=== PATIENT | female | born 1955 | race Caucasian/White ===

== ENCOUNTER → 2019-08-08 | Outpatient (CLI) | payer BC ==
--- NOTE | 2019-08-08 12:22 | XR ---
EXAMINATION TYPE: XR thoracic spine complete DATE OF EXAM: 08/08/2019 CLINICAL HISTORY: Back pain with no known injury TECHNIQUE: Frontal, lateral, and swimmer's view of thoracic spine are obtained. COMPARISON: None. FINDINGS: There is a subtle and mild levoscoliosis of the thoracic spine. Minimal multilevel degenera tive disc disease with very few small anterior osteophytes. Thoracic spine show satisfactory alignmen t without evidence of acute fracture or dislocation. Vertebral body heights and disc space heights a re preserved. Visualized ribs are unremarkable. IMPRESSION: No acute fracture or dislocation is seen in the thoracic spine. Very mild levoscoliosis of the thoracic spine and very mild multilevel degenerative disc disease.
== END | disposition home or self-care (01) ==
LOC: RADXRMAIN 11:11
PROVIDERS: ATTEND Family Medicine
DX: M51.34 Other intervertebral disc degeneration, thoracic region (principal); M41.84 Other forms of scoliosis, thoracic region
CPT/HCPCS: 72072

== ENCOUNTER 2019-10-01 20:53 | Emergency (ER) | payer BC ==
[2019-10-01 21:12] LABS: Glucose,Whole Blood 137 mg/dL (75-99)
[2019-10-01 21:42] VITALS: RESP 16
[2019-10-01] MEDS ORDERED: valACYclovir 500 MG TAB PO STA (21:45)
[2019-10-01] MEDS ORDERED: predniSONE 10 MG TAB PO STA (21:45)
--- NOTE | 2019-10-01 21:49 | ED ---
Neuro HPI - General Chief Complaint: Neuro Symptoms/Deficit Stated Complaint: Facial numbness Time Seen by Provider: 10/01/19 21:37 Source: patient Mode of arrival: ambulatory Limitations: no limitations - History of Present Illness Is the patient presenting with stroke symptoms?: No Onset/Timin -: hour(s) Initial Comments: Lucy is a 64-year-old female who presents to the emergency department today for evaluation of left-sided facial droop. Patient reports that around 10 AM today she noticed some left-sided facial numbness and throughout the day she has noticed progressively worsening left-sided facial droop. Patient reports she when she looked in the mirror today she realized her mouth was drooping in her eye when it closed at which time she became concerned she may have had a stroke so she came to the ER for further evaluation. Patient denies any headache, vision change. She was recently treated for shingles with steroids and antivirals. Shingles were on her right breast. - Related Data Home Medications: Previous Rx's Medication Instructions Recorded predniSONE 5 mg PO BID #20 tab 10/01/19 predniSONE [Deltasone] 20 mg PO BID #20 tab 10/01/19 valACYclovir HCL [Valtrex] 1,000 mg PO Q8HR #30 tab 10/01/19 Allergies/Adverse Reactions: Allergies Allergy/AdvReac Type Severity Reaction Status Date / Time No Known Allergies Allergy Verified 10/01/19 20:58 Review of Systems ROS Statement: Those systems with pertinent positive or pertinent negative responses have been documented in the HPI. ROS Other: All systems not noted in ROS Statement are negative. General Exam - General Exam Comments Initial Comments: Physical Exam GENERAL: Patient is well-developed and well-nourished. Patient is nontoxic and well- hydrated and is in no distress. HENT: Normocephalic, Atraumatic. EYES: PERRL, EOMI PULMONARY: Unlabored respirations. No audible rales rhonchi or wheezing was noted. CARDIOVASCULAR: There is a regular rate and rhythm without any murmurs gallops or rubs. ABDOMEN: Soft and nontender with normal bowel sounds. SKIN: Skin is clear with no lesions or rashes and otherwise unremarkable. All healing lesion on the right breast consistent with recent shingles infection : Deferred NEUROLOGIC: Patient is alert and oriented x3. Moving all extremities spontaneously Patient has left-sided facial droop involving the forehead. Patient has inability to fully close the left eye. MUSCULOSKELETAL: Normal extremities with adequate strength and full range of motion. No lower extremity swelling or edema. No calf tenderness. PSYCHIATRIC: Normal psychiatric evaluation. Limitations: no limitations Stroke [facility] - Lab Data Lab Results 10/01/19 Range/Units 21:08 POC Glucose (mg/dL) 137 H (75-99) mg/dL POC Glu Strategic Debriefing Officer ID Evelyn Monteiro - NIH Stroke Scale 1a. Level of Consciousness: (0) alert 1b. LOC Questions: (0) answers correctly 1c. LOC Commands: (0) performs tasks correctly 2. Best Gaze: (0) normal 3. Visual: (0) no visual loss 4. Facial Palsy: (2) partial paralysis 5a. Motor Arm Left: (0) no drift 5b. Motor Arm Right: (0) no drift 6a. Motor Leg Left: (0) no drift 6b. Motor Leg Right: (0) no drift 7. Limb Ataxia: (0) absent 8. Sensory: (0) normal 9. Best Language: (0) no aphasia 10. Dysarthria: (0) normal 11. Extinction/Inattention: (0) no abnormality NIH Score total: 2 - Thrombolytic Inclusion/Exclusion Thrombolytic Exclusion Criteria: Symptom Onset > 4.5 Hours - Medical Decision Making Patient was seen and evaluated history is obtained from the patient and at bedside Patient with facial numbness and progressively worsening droop throughout the day. Facial droop includes the forehead, patient is unable to fully close left eye. As ago exam is consistent with a Davenport's palsy or a peripheral neuropathy not a central process therefore code stroke was not activated. Patient reports her sister suffered from Davenport's palsy so she is familiar with the diagnosis and treatment being supportive care and eye patching. I advised patient that she is not diabetic we will also get steroids and an additional course of Valtrex despite her recently being on antivirals due to shingles. Patient's TMs were normal bilaterally. - EKG Data -: EKG Interpreted by Me EKG was obtained as part of the triage with patient with neuro deficit, EKG obtained at 2106, rate is 82 rhythm is sinus, axis normal intervals [place] 158, curettement 6 QTC 439 elevations or depressions or evidence of acute ischemia or infarction. 10/02/19 04:54 Past Medical History Past Medical History: Hyperlipidemia, Thyroid Disorder History of Any Multi-Drug Resistant Organisms: None Reported Past Surgical History: Adenoidectomy, Hysterectomy, Tonsillectomy Additional Past Surgical History / Comment(s): eye surgery Past Psychological History: No Psychological Hx Reported Smoking Status: Current every day smoker Past Alcohol Use History: None Reported Past Drug Use History: None Reported Course Vital Signs 10/01/19 10/01/19 10/01/19 20:55 21:10 21:25 Temperature 98.0 F Pulse Rate 89 85 67 Respiratory 16 17 16 Rate Blood Pressure 154/80 124/68 140/84 O2 Sat by Pulse 98 96 97 Oximetry 10/01/19 10/01/19 21:30 22:15 Temperature 98.3 F 98.4 F Pulse Rate 70 75 Respiratory 16 16 Rate Blood Pressure 130/73 133/75 O2 Sat by Pulse 96 96 Oximetry Disposition Clinical Impression: Facial paralysis/Hamilton palsy Disposition: HOME SELF-CARE Condition: Stable Instructions (If sedation given, give patient instructions): Davenport Palsy (ED) Prescriptions: predniSONE [Deltasone] 20 mg PO BID #20 tab predniSONE 5 mg PO BID #20 tab valACYclovir HCL [Valtrex] 1,000 mg PO Q8HR #30 tab Is patient prescribed a controlled substance at d/c from ED?: No Referrals: Juan Almanza MD [Primary Care Provider] - 1-2 days
[2019-10-01 22:16] VITALS: BP 133/75; PULSE 75; TEMP 98.4
== END 2019-10-01 22:35 | disposition home or self-care (01) ==
LOC: EC 20:53
DX: R20.0 Anesthesia of skin (principal); R29.810 Facial weakness; B02.9 Zoster without complications; F17.200 Nicotine dependence, unspecified, uncomplicated; Z90.89 Acquired absence of other organs
CPT/HCPCS: 36415; 93005; 99284; J7512

== ENCOUNTER → 2019-10-06 | Outpatient (CLI) | payer BC ==
--- NOTE | 2019-10-06 08:04 | CT ---
EXAMINATION TYPE: CT brain wo con DATE OF EXAM: 10/06/2019 COMPARISON: None HISTORY: [place] Palsy CT DLP: [address] of the head is obtained. The ventricles, basal cisterns and sulci overlying the conve xities are consistent with the patient's age. The calvarium is intact. Changes of chronic sinusitis noted. No midline shift. IMPRESSION: 1. No evidence of acute hemorrhage or mass effect. If symptoms persist or there is clinical concern for acute ischemia correlate with MRI.
--- NOTE | 2019-10-06 10:14 | US ---
EXAMINATION TYPE: US carotid duplex BILAT DATE OF EXAM: 10/06/2019 COMPARISON: NONE CLINICAL HISTORY: G45.9 TIA. No HTN. Smoker. Patient states having Davenport Palsy. EXAM MEASUREMENTS: RIGHT: Peak Systolic Velocity (PSV) cm/sec ----- Right CCA: 78.9 ----- Right ICA: 78.9 ----- Right ECA: 93.2 ICA/CCA ratio: 1.0 RIGHT: End Diastole cm/sec ----- Right CCA: 26.0 ----- Right ICA: 31.5 ----- Right ECA: 15.0 LEFT: Peak Systolic Velocity (PSV) cm/sec ----- Left CCA: 59.0 ----- Left ICA: 91.9 ----- Left ECA: 208.8 ICA/CCA ratio: 1.6 LEFT: End Diastole cm/sec ----- Left CCA: 18.0 ----- Left ICA: 33.6 ----- Left ECA: 19.2 VERTEBRALS (direction of flow): Right Vertebral: Antegrade Left Vertebral: Antegrade Rhythm: Normal No significant stenosis. Elevated left ECA. Small amount of plaque seen in bilateral bulbs. No wal l thickening. IMPRESSION: 1. Small amount of atherosclerotic plaque with no significant hemodynamic stenosis bilaterally. Criteria for Assigning % of Stenosis / Diameter reduction (Estimation based on the indirect measurements of the internal carotid artery velocities (ICA PSV). 1. Normal (no stenosis)=ICA PSV < 125 cm/s: ratio < 2.0: ICA EDV<40 cm/s. 2. Less than 50% stenosis=ICA PSV < 125 cm/s: ratio < 2.0: ICA EDV<40 cm/s. 3. 50 to 69% stenosis=ICA PSV of 125 to 230 cm/s: ration 2.0 ? 4.0: ICA EDV 40-100 cm/s. 4. Greater than 70% stenosis to near occlusion= ICA PSV > 230 cm/s: ratio > 4.0: ICA EDV > 100 cm/s. 5. Near occlusion= ICA PSV velocities may be low or undetectable: variable ratio and ICA EDV. 6. Total occlusion=unable to detect flow.
--- NOTE | 2019-10-06 10:36 | ECHOF ---
Referral Reason:G51.0 bells palsy MEASUREMENTS -------- HEIGHT: 167.6 cm WEIGHT: 104.3 kg BP: RVIDd: 3.4 cm (< 3.3) IVSd: 1.4 cm (0.6 - 1.1) LVIDd: 3.8 cm (3.9 - 5.3) LVPWd: 1.4 cm (0.6 - 1.1) IVSs: 2.1 cm LVIDs: 2.6 cm LVPWs: 1.7 cm LAESV Index (A-L): 15.41 ml/m Ao Diam: 3.5 cm (2.0 - 3.7) AV Cusp: 2.0 cm (1.5 - 2.6) LA Diam: 3.6 cm (2.7 - 3.8) MV E Jay: 0.68 m/s MV DecT: 219 ms MV A Jay: 1.14 m/s MV E/A Ratio: 0.60 AR PHT: 554 ms RAP: 5.00 mmHg RVSP: 18.42 mmHg FINDINGS -------- Sinus rhythm. This was a technically adequate study. The left ventricular size is normal. There is moderate concentric left ventricular hypertrophy. O verall left ventricular systolic function is normal with, an EF between 60 - 65 %. The diastolic fi lling pattern is normal for the age of the patient 8.68. The right ventricle is mildly enlarged. Normal LA size by volume 22+/-6 ml/m2. The right atrial size is normal. Interatrial and interventricular septum intact. The aortic valve was not well visualized. There is jgwy-hk-xsebzlko aortic regurgitation. There i s no evidence of aortic stenosis. No mitral regurgitation. Trace tricuspid regurgitation present. There is no evidence of pulmonary hypertension. The right ventricular systolic pressure, as measured by Doppler, is 18.42mmHg. There is no pulmonic regurgitation present. The aortic root size is normal. Normal inferior vena cava with normal inspiratory collapse consistent with estimated right atrial pre ssure of 5 mmHg. There is no pericardial effusion. CONCLUSIONS -------- 1. Sinus rhythm. 2. This was a technically adequate study. 3. The left ventricular size is normal. 4. There is moderate concentric left ventricular hypertrophy. 5. Overall left ventricular systolic function is normal with, an EF between 60 - 65 %. 6. The diastolic filling pattern is normal for the age of the patient 8.68 7. The right ventricle is mildly enlarged. 8. Normal LA size by volume 22+/-6 ml/m2. 9. The right atrial size is normal. 10. Interatrial and interventricular septum intact. 11. The aortic valve was not well visualized. 12. There is lhyt-ud-urbrturn aortic regurgitation. 13. There is no evidence of aortic stenosis. 14. No mitral regurgitation. 15. Trace tricuspid regurgitation present. 16. There is no evidence of pulmonary hypertension. 17. The right ventricular systolic pressure, as measured by Doppler, is 18.42mmHg. 18. There is no pulmonic regurgitation present. 19. The aortic root size is normal. 20. Normal inferior vena cava with normal inspiratory collapse consistent with estimated right atrial pressure of 5 mmHg. 21. There is no pericardial effusion. ELECTRIC MELT OPERATOR: Jodie Hinojosa RDCS
== END | disposition home or self-care (01) ==
LOC: RADCTMAIN 06:59
PROVIDERS: ATTEND Family Medicine
DX: G51.0 Bell's palsy (principal); G45.9 Transient cerebral ischemic attack, unspecified; I35.1 Nonrheumatic aortic (valve) insufficiency; I51.7 Cardiomegaly
CPT/HCPCS: 70450; 93306; 93880

== ENCOUNTER 2020-06-27 08:52 | Day surgery (SDC) | payer BC, OTHER ==
[2020-06-25 14:04] VITALS: BMI 37.1
[~2020-06-27 08:52] MED LIST: LACTATED RINGERS 1,000 ML IV SCH
[2020-06-27 09:23] VITALS: TEMP 97.2
[2020-06-27] MEDS ORDERED: LIDOCAINE 1% (10MG/ML) FOR IV START INTRADERMA ONE (09:26)
[2020-06-27] MEDS ORDERED: PROPOFOL 10 MG/ML 20 ML VIAL IV ONE (09:47)
--- NOTE | 2020-06-27 10:00 | P.GSHP ---
History of Present Illness H&P Date: 06/27/20 Chief Complaint: Screening colonoscopy This a 64-year-old female been safe for screening colonoscopy. Patient denies a significant GI complaints. Past Medical History Past Medical History: Hyperlipidemia, Sleep Apnea/CPAP/BIPAP, Thyroid Disorder Additional Past Medical History / Comment(s): has cpap History of Any Multi-Drug Resistant Organisms: None Reported Past Surgical History: Adenoidectomy, Hysterectomy, Tonsillectomy Additional Past Surgical History / Comment(s): eye surgery Past Anesthesia/Blood Transfusion Reactions: No Reported Reaction Smoking Status: Current every day smoker Medications and Allergies Home Medications Medication Instructions Recorded Confirmed Type Aspirin [Children's Aspirin] 81 mg PO DAILY 06/25/20 06/27/20 History Calcium Carbonate/Vitamin D3 1 each PO DAILY 06/25/20 06/27/20 History [Calcium 500-Vit D3 200 Tablet] Levothyroxine Sodium [Synthroid] 100 mcg PO DAILY 06/25/20 06/27/20 History Multivit-Min/FA/Lycopen/Lutein 1 each PO DAILY 06/25/20 06/27/20 History [Centrum Silver Tablet] Simvastatin [Zocor] 80 mg PO DAILY 06/25/20 06/27/20 History Vit C/E/Zn/Coppr/Lutein/Zeaxan 1 each PO DAILY 06/25/20 06/27/20 History [Preservision Areds 2 Softgel] Vitamin E 1 cap PO DAILY 06/25/20 06/27/20 History Allergies Allergy/AdvReac Type Severity Reaction Status Date / Time No Known Allergies Allergy Verified 06/27/20 09:18 Surgical - Exam Vital Signs Temp Pulse Resp BP Pulse Ox 97.2 F L 77 18 146/72 94 L 06/27/20 09:21 06/27/20 09:21 06/27/20 09:21 06/27/20 09:21 06/27/20 09:21 - General well developed, well nourished, no distress - Eyes PERRL - ENT normal pinna - Neck no masses - Respiratory normal expansion - Cardiovascular Rhythm: regular - Abdomen Abdomen: soft, non tender Assessment and Plan Assessment: We'll perform screening colonoscopy.
--- NOTE | 2020-06-27 10:14 | P.OP ---
Date of Procedure: 06/27/20 Preoperative Diagnosis: Screening colonoscopy Postoperative Diagnosis: Normal colonoscopy Procedure(s) Performed: Colonoscopy Anesthesia: MAC Surgeon: Vasu Cunha Pathology: none sent Condition: stable Disposition: PACU Description of Procedure: Patient's placed on the endoscopy table in the lateral position. She received IV sedation. Digital rectal exam was performed which revealed external hemorrhoids. The flexible colonoscope was then placed patient anus passed throughout the entire colon. The ileocecal valve sutures. The cecum, ascending and transverse colon appeared normal. The descending and sigmoid colon appeared normal. Scope summer back the rectum and this appeared normal. Scope withdrawn for patient.
[2020-06-27 10:27] VITALS: RESP 18
[2020-06-27 10:44] VITALS: BP 144/81; PULSE 61
== END 2020-06-27 10:51 | disposition home or self-care (01) ==
LOC: ORWHC2ENDO 08:52
PROVIDERS: ATTEND Surgery
DX: Z12.11 Encounter for screening for malignant neoplasm of colon (principal); E78.5 Hyperlipidemia, unspecified; G47.33 Obstructive sleep apnea (adult) (pediatric); Z99.89 Dependence on other enabling machines and devices; E07.9 Disorder of thyroid, unspecified; Z90.710 Acquired absence of both cervix and uterus; Z98.890 Other specified postprocedural states; F17.200 Nicotine dependence, unspecified, uncomplicated; Z79.82 Long term (current) use of aspirin; Z79.890 Hormone replacement therapy; Z79.899 Other long term (current) drug therapy
CPT/HCPCS: J2704; G0121; 45378

== ENCOUNTER → 2023-02-25 | Outpatient (CLI) | payer OTHER ==
--- NOTE | 2023-02-25 07:54 | CT ---
EXAMINATION TYPE: CT sinus wo con CT DLP: 596.5 mGycm, Automated exposure control for dose reduction was used. DATE OF EXAM: 02/25/2023 7:17 AM COMPARISON: CT brain 10/06/2019. CLINICAL INDICATION:Female, 67 years old with history of J31.0; PHH, Chronic sinuitis CONTRAST: None. TECHNIQUE: Multiple thin axial images were obtained through the paranasal sinuses without the use of IV contrast. Additional coronal and sagittal reformatted images were submitted for evaluation. FINDINGS: Frontal sinuses: Normally developed and aerated. Frontal Recess: Clear Maxillary Sinuses: Normally developed. The left maxillary sinus is clear. Minimal mucosal thickening of the right maxillary sinus. Maxillary Infundibula([facility]): Clear, . Ethmoid sinuses: Normally developed. Moderate mucosal thickening of the bilateral ethmoid sinuses. Et hmoidal notch: Protected and abutting the lateral lamina. Sphenoid sinuses: Normally developed. Moderate mucosal thickening of the left sphenoid sinus. There i s sellar sphenoid sinus pneumatization without evidence of dehiscence. No dehiscence of carotid david l. No evidence of optic nerve dehiscence within the sphenoid sinus. Sphenoethmoidal recesses: Clear. Nasal septum: Mildly deviated to the left. Nasal Turbinates: Within normal limits. Mastoid air cells & middle ears: Opacification of both mastoid air cells. There is some soft tissue i n the region of the Prussak space bilaterally. Modified Soft tissues & Brain: Partially seen without gross abnormality. Globes are intact. Other: Cribriform plate demonstrates symmetric Keros classification type 1 cribriform plate. No evidence of bony dehiscence of skull base. Lamina papyracea is intact without evidence of remote orbital fracture or orbital prolapse into the e thmoid sinus. IMPRESSION: 1. Pogz-zd-dqaxyzrc mucosal sinus disease involving the ethmoid sinuses and left sphenoid sinus. 2. The ostiomeatal units, frontonasal and sphenoethmoidal recesses are clear. 3. Bilateral mastoid effusions with some soft tissue in the region of the bilateral Prussak space of the middle ear. Clinical correlation for mastoiditis is recommended. Consider further evaluation with CT IAC.
== END | disposition home or self-care (01) ==
LOC: RADCTMAIN 06:57
PROVIDERS: ATTEND Otolaryngology
DX: H74.8X3 Other specified disorders of middle ear and mastoid, bilateral (principal); J34.81 Nasal mucositis (ulcerative); J31.0 Chronic rhinitis
CPT/HCPCS: 70486

== ENCOUNTER → 2023-06-02 | Outpatient (CLI) | payer MEDICARE ==
--- NOTE | 2023-06-02 09:00 | CT ---
EXAMINATION TYPE: CT iac wo con CT DLP: 142.70 mGycm, Automated exposure control for dose reduction was used. DATE OF EXAM: 06/02/2023 6:51 AM INDICATION: Patient age:Female; 67 years old; Reason for study: H71.90 UNSPECIFIED CHOLESTEATOMA, UNSPECIFIED EAR; [facility]. COMPARISON: 02/25/2023 TECHNIQUE: Multiple thin axial images were obtained through the temporal bones and internal auditory canals. Additional coronal reformatted images were obtained. No IV contrast was utilized. STENVER a nd POSCHL views were created on a separate work station. CT Contrast: Contrast used: none. FINDINGS: Right Temporal Bone: External Ear: The external auditory canal is unremarkable, The tympanic membrane is present and unrem arkable. Middle Ear: The ossicles demonstrate a normal appearance. Prussak's space is clear and the scutum i s intact. There is no evidence of osseous erosion and the tegmen tympani is intact. Inner Ear: Cochlea, vestibule and semi circular canals are unremarkable. No evidence of carotid david l dehiscence. Two and a half turns of the cochlea are identified. The vestibular aqueduct is not enl arged. Mastoid Air Cells: The mastoid air cells are clear. The tegmen mastoideum is intact. The aditus ad an trum is clear. Internal Auditory Canal: The internal auditory canal is unremarkable. Left Temporal Bone: External Ear: The external auditory canal is unremarkable, The tympanic membrane is present and unrem arkable. Middle Ear: The ossicles demonstrate a normal appearance. Prussak's space is clear and the scutum i s intact. There is no evidence of osseous erosion and the tegmen tympani is intact. Inner Ear: Cochlea, vestibule and semi circular canals are unremarkable. No evidence of carotid david l dehiscence. Two and a half turns of the cochlea are identified. The vestibular aqueduct is not enl arged. Mastoid Air Cells: The mastoid air cells are clear. The tegmen mastoideum is intact. The aditus ad an trum is clear. Internal Auditory Canal: The internal auditory canal is unremarkable. Paranasal sinus disease with an antrostomy changes bilaterally. There is retention cysts in the bilat eral maxillary sinuses. Ethmoid air cells also demonstrate mucosal thickening. IMPRESSION: 1. Resolution of prior bilateral middle ear effusions on prior exam on 02/25/2023. No evidence for ch olesteatoma. 2. Moderate paranasal sinus disease.
== END | disposition home or self-care (01) ==
LOC: RADCTMAIN 06:23
PROVIDERS: ATTEND Otolaryngology
DX: H71.90 Unspecified cholesteatoma, unspecified ear (principal); J34.89 Other specified disorders of nose and nasal sinuses
CPT/HCPCS: 70480

== ENCOUNTER → 2023-12-28 | Outpatient (CLI) | payer MEDICARE ==
--- NOTE | 2023-12-29 09:50 | US ---
EXAMINATION TYPE: US carotid duplex BILAT DATE OF EXAM: 12/28/2023 COMPARISON: US 10/06/2019 CLINICAL INDICATION: Female, 68 years old with history of R29.810 FACIAL WEAKNESS; Left facial weakne ss. Current smoker. TECHNIQUE: Carotid duplex ultrasound examination. Indirect Doppler criteria was utilized. FINDINGS: EXAM MEASUREMENTS: RIGHT: Peak Systolic Velocity (PSV) cm/sec ----- Right CCA: 74.6 ----- Right ICA: 116.0 ----- Right ECA: 80.9 ICA/CCA ratio: 1.6 RIGHT: End Diastole cm/sec ----- Right CCA: 23.0 ----- Right ICA: 44.8 ----- Right ECA: 12.8 LEFT: Peak Systolic Velocity (PSV) cm/sec ----- Left CCA: 82.3 ----- Left ICA: 119.8 ----- Left ECA: 161.9 ICA/CCA ratio: 1.5 LEFT: End Diastole cm/sec ----- Left CCA: 24.1 ----- Left ICA: 30.5 ----- Left ECA: 11.1 VERTEBRALS (direction of flow): Right Vertebral: Antegrade Left Vertebral: Antegrade Rhythm: Normal CLINIC ASSISTANT NOTES: Bilateral ICAs area very tortuous* Limited. Elevated velocity within left ECA. P laque seen within left carotid bulb. IMPRESSION: No significant flow-limiting stenosis based on velocity. Atheromatous plaquing is present Criteria for Assigning % of Stenosis / Diameter reduction (Estimation based on the indirect measurements of the internal carotid artery velocities (ICA PSV). 1. Normal (no stenosis)=ICA PSV < 125 cm/s: ratio < 2.0: ICA EDV<40 cm/s. 2. Less than 50% stenosis=ICA PSV < 125 cm/s: ratio < 2.0: ICA EDV<40 cm/s. 3. 50 to 69% stenosis=ICA PSV of 125 to 230 cm/s: ration 2.0 ? 4.0: ICA EDV 40-100 cm/s. 4. Greater than 70% stenosis to near occlusion= ICA PSV > 230 cm/s: ratio > 4.0: ICA EDV > 100 cm/s. 5. Near occlusion= ICA PSV velocities may be low or undetectable: variable ratio and ICA EDV. 6. Total occlusion=unable to detect flow.
== END | disposition home or self-care (01) ==
LOC: RADUSWWP 07:41
PROVIDERS: ATTEND Family Medicine
DX: I67.2 Cerebral atherosclerosis (principal); R29.810 Facial weakness
CPT/HCPCS: 93880

== ENCOUNTER → 2024-02-01 | Outpatient (CLI) | payer MEDICARE ==
--- NOTE | 2024-02-02 14:32 | MM ---
Reason for Exam: Screening (asymptomatic). Last screening mammogram was performed 12 month(s) ago. Patient History: Menarche at age 14. First Full-Term at age 17. Hysterectomy at age 23. Postmenopausal. Endometrial cancer, age 23. Risk Values: Valery 5 year model risk: 1.2%. NCI Lifetime model risk: 4.2%. Prior Study Comparison: 11/07/2009 Bilateral Screening Mammogram, [facility]. 11/10/2010 Bilateral Screening Mammogram, [facility]. 10/19/2012 Bilateral Screening Mammogram, [facility]. Tissue Density: There are scattered areas of fibroglandular density. Findings: Analyzed By CAD. Right breast: There is no suspicious group of microcalcifications or new suspicious mass. Left breast: There is no suspicious group of microcalcifications or new suspicious mass. Overall Assessment: Negative, BI-RAD 1 Management: Screening Mammogram of both breasts in [address] [facility] will attempt to contact patient to return for supplemental views and ultrasound if indicated. Patient should continue monthly self-breast exams. A clinical breast exam by your physician is recommended on an annual basis. This exam should not preclude additional follow-up of suspicious palpable abnormalities. Note on Valery scores and lifetime risk: 1. A Valery score greater than 3% is considered moderate risk. If this is the case, consider specialist referral to assess eligibility for a risk reducing agent. 2. If overall lifetime risk for the development of breast cancer is 20% or higher, the patient may qualify for future screening with alternating mammogram and breast MRI. Electronically signed and approved by: Lb Goodrich DO
== END | disposition home or self-care (01) ==
LOC: RADMAMWWP 09:39
PROVIDERS: ATTEND Family Medicine
DX: Z12.31 Encounter for screening mammogram for malignant neoplasm of breast (principal); Z78.0 Asymptomatic menopausal state
CPT/HCPCS: 77063; 77067

== ENCOUNTER → 2025-02-16 | Outpatient (CLI) | payer MEDICARE ==
--- NOTE | 2025-02-16 09:43 | MM ---
Reason for Exam: Screening (asymptomatic). Last screening mammogram was performed 12 month(s) ago. Patient History: Menarche at age 14. First Full-Term at age 17. Hysterectomy at age 23. Postmenopausal. Endometrial cancer, age 23. Risk Values: Valery 5 year model risk: 1.2%. NCI Lifetime model risk: 4.0%. Prior Study Comparison: 10/19/2012 Bilateral Screening Mammogram, [facility]. 01/30/2023 Bilateral Screening Mammogram, [facility]. 02/01/2024 Bilateral MG 3D screening mammo w/cad, [facility]. Tissue Density: There are scattered areas of fibroglandular density. Findings: Analyzed By CAD. Central asymmetric density right CC view mid posterior depth shows no persisting abnormality on this. Low axillary tail lymph node on the right remains unchanged. There is no suspicious group of microcalcifications or new suspicious mass in either breast. Overall Assessment: Benign, BI-RAD 2 Management: Screening Mammogram of both breasts in 1 year. Patient should continue monthly self-breast exams. A clinical breast exam by your physician is recommended on an annual basis. This exam should not preclude additional follow-up of suspicious palpable abnormalities. Note on Valery scores and lifetime risk: 1. A Valery score greater than 3% is considered moderate risk. If this is the case, consider specialist referral to assess eligibility for a risk reducing agent. 2. If overall lifetime risk for the development of breast cancer is 20% or higher, the patient may qualify for future screening with alternating mammogram and breast MRI. [facility], , 02/16/2025 9:40 AM. Electronically signed and approved by: Obie Beaver M.D. Radiologist
== END | disposition home or self-care (01) ==
LOC: RADMAMWWP 09:23
PROVIDERS: ATTEND Family Medicine
DX: Z12.31 Encounter for screening mammogram for malignant neoplasm of breast (principal); R92.323 Mammographic fibroglandular density, bilateral breasts; Z78.0 Asymptomatic menopausal state
CPT/HCPCS: 77063; 77067